=== PATIENT | male | born 1975 | race Caucasian/White ===

== ENCOUNTER 2019-06-03 06:00 | Day surgery (SDC) | payer BC ==
[2019-06-02 14:48] LABS: BASOPHILS 0.4 % (0-2); EOSINOPHILS 7.6 % (0-7); HEMATOCRIT 37.7 % (42.0-54.0); HEMOGLOBIN 13.1 g/dL (13.5-17.5); IMMATURE GRANULOCYTES 0.2 % (0-5); LYMPHOCYTES 41.7 % (15-50); MCH 31.6 pg (26.0-34.0); MCHC 34.7 g/dL (31.0-37.0); MCV 90.8 fL (80.0-100.0); NEUTROPHILS 37.1 % (40-80); PLATELET COUNT 258 10x3/uL (130-400); RBC 4.15 10x6/uL (4.20-6.10); RDW 12.8 % (11.5-14.5); WBC 5.2 10x3/uL (4.8-10.8)
[2019-06-02 14:57] LABS: CALC OSMOLALITY 264 mosm/kg (275-300); CALCIUM 8.9 mg/dL (8.5-10.1); CARBON DIOXIDE 30.6 mmol/L (21.0-32.0); CHLORIDE - SERUM 97 mmol/L (98-107); CREATININE - SERUM 0.7 mg/dL (0.6-1.3); GLUCOSE 90 mg/dL (74-106); POTASSIUM - SERUM 3.9 mmol/L (3.5-5.1); SODIUM 133 mmol/L (136-145); UREA NITROGEN 11 mg/dL (7-18); eGFR NON AFRICAN AMERICAN > 90 mL/min (90-120)
[2019-06-02 15:38] LABS: APTT 28.4 SECONDS (22.8-39.4); INR 0.94 (0.85-1.17); PROTIME 12.1 SECONDS (11.6-15.0)
[~2019-06-03] VITALS: Ht 182.9 cm; Wt 90.7 kg
--- NOTE | ~2019-06-03 | OP ---
PATIENT NAME: NICOLE MARTE MEDICAL RECORD: [id number] :79 LOCATION:[facility] ADMISSION DATE: SURGEON: TRACI PEREZ MD DATE OF OPERATION: 06/03/2019 REFERRED BY: Kjaal Espinosa APN and Dr. Ruff of [place]. PREOPERATIVE DIAGNOSES: Recurrent persistent venous stasis ulceration and inflammation medial left leg with gross superficial venous reflux and a dilated left greater saphenous vein. POSTOPERATIVE DIAGNOSES: Recurrent persistent venous stasis ulceration and inflammation medial left leg with gross superficial venous reflux and a dilated left greater saphenous vein. OPERATION PERFORMED: Venefit radiofrequency ablation of the left greater saphenous vein and high ligation of the greater saphenous vein. SURGEON: Traci Perez MD ANESTHESIA: General with LMA per MANAGER CLINICAL. PREOPERATIVE NOTE: Mr. 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 He has in addition multiple incompetent perforating veins, particularly in the medial gaiter area on the left where he has a persistent recurring area of inflammation and ulceration. He is brought to the operating room at this time to perform a radiofrequency ablation of the greater saphenous vein in order to speed healing of the lesion and hopefully we can get him to a point where he has much less frequent problems like this. DESCRIPTION OF PROCEDURE: Under general anesthesia in the supine position, the patient was prepped and draped in a sterile manner. He was examined with Duplex ultrasound and a site in the leg at about the junction of the middle and upper thirds on the medial aspect was chosen to access the greater saphenous vein percutaneously with micropuncture technique. A 7-Urdu introducer was placed and the Venefit catheter was inserted and advanced to the saphenofemoral junction. It was positioned under ultrasound approximately 2 cm distal to that junction and following that, the patient was placed in Trendelenburg position and under ultrasound guidance, normal saline was injected into the perivenous sheath to act as a heat sink and to close down on to get better apposition of the vein around the catheter. The heating element was then activated and gradually removed in 6-7 cm increments while under ultrasound imaging and also after an Esmarch bandage was used to help to empty the venous system in the left leg. The catheter was removed and a simple 4-0 Prolene suture placed at the entry site below the knee. I had noted the patient's right greater saphenous vein to be really large and wanting to avoid any problems with recurrence after the radiofrequency ablation. I opted to go ahead and ligate that vein. I made a small incision just beneath the groin crease and exposed the saphenous vein and ligated it doubly with 2-0 silk. That wound was then closed with interrupted 3-0 Vicryl and running intracuticular 4-0 Monocryl. It was sealed with Dermabond glue and dressed with Maxorb Ag, Tegaderm, and Cavilon skin prep. The patient was placed in his knee high 30-40 mm gradient open-toed stocking OPERATIVE REPORT [id number] NICOLE MARTE and additional Coban elastic compressive dressing was applied from the knee up over the thigh. The patient was at that point awakened and in stable condition returned to the recovery room. PLAN: The patient should be able to go home today and follow my usual instructions, which are that he should rest today with his leg elevated higher than his heart for most of the time; however, every hour or 2 it does good for him to get up and walk around or even go outdoors and go for a walk. He should sleep in his stocking tonight. He may take it off to shower tomorrow and then I would like him to wear his stockings whenever he is out of bed until he comes back to see me in the office. He is to resume or continue his home medications, diet and activities as tolerated. An appointment will be scheduled for him in my office to return for followup ultrasound examination, wound check, etc. The patient is being given a single dose of Lovenox in the hospital here today and I am prescribing for him, Eliquis 5 mg b.i.d., which I plan for him for about a month or 6 weeks. Along with this factor V deficiency or factor V Leiden, whichever he has. He does have a superficial phlebitis of the tributary veins of the greater saphenous in the left lower extremity and I would consider him to be at risk for further superficial phlebitis at this point. He will be advised to take ibuprofen and use an ice pack on his leg p.r.n. for pain or discomfort. NOTE: This patient is clearly a failure of conservative medical therapy and has active ulceration and an inflammation in the left leg, which is recurrent neoplasm. TRANSINT:[id number] Voice Confirmation ID: [id number] DOCUMENT ID: [id number] TRACI PEREZ MD CC: [id number] DICTATION DATE: 06/07/19 165 DUMPSTER DRIVER: [id number] [facility] 06/03/19 [place] [id number] [place] [id number]
[~2019-06-03 06:00] MED LIST: BAYER CHEWABLE81 MG PO; LISINOPRIL5 MG PO; TRILEPTAL300 MG; TRILEPTAL300 MG PO
[2019-06-03] MEDS ORDERED: CLARITIN 10 MG10 MG PO (06:46)
[2019-06-03] MEDS ORDERED: KENALOG 0.1 % O15 GM TOPICAL (06:47)
[2019-06-03] MEDS ORDERED: FLUTICASONE PRO16 GM (06:47)
[2019-06-03] MEDS ORDERED: ULTRAM50 MG PO (06:49)
[2019-06-03 07:13] VITALS: BP 151/86; Ht 182.9 cm; Wt 90.7 kg
[2019-06-03] MEDS ORDERED: ELIQUIS5 MG PO (10:22)
[2019-06-03] MEDS ORDERED: HYDROCODON-ACE1 EAC7 PO (10:23)
--- NOTE | 2019-06-03 12:44 | NUR ---
1034-REC'D FROM RR. AWAKE AND ALERT,DENIES PAIN.VSS. DRESSING TO LLE CDI. ABLE TO FEEL EXTREMITY,ABLE TO WIGGLE DIGITS. PALPABLE STRONG PEDAL PULSE. IV PATENT TO RIGHT ARM AT KVO. WATER AT BEDSIDE. CL IN EASY REACH. MOTHER IN LAW AT BEDSIDE.
--- NOTE | 2019-06-03 12:45 | NUR ---
1045-ABLE TO AMBULATE TO RESTROOM WITH SLOW STEADY GAIT AND URINATE WITHOUT COMPLICATIONS.DENIES PAIN.
--- NOTE | 2019-06-03 12:46 | NUR ---
1100-FULL LIQUID TRAY TO ROOM. DENIES PAIN.
--- NOTE | 2019-06-03 12:47 | NUR ---
1135-TOLERATED TRAY. DISCAHRGE CRITERIA MET. REMOVED IV FROM RIGHT ARM WITH CATH INTACT,DISPOSED INTO SHARPS,COVERED WITH COTTON BALL,SECURED WITH TAPE.VSS. DENIES PAIN. DRESSING TO LLE CDI,PALPABLE STRONG PEDAL PULSE,CAP REFILL WNL,SKIN WARM TO TOUCH.
--- NOTE | 2019-06-03 12:48 | NUR ---
1155-REVIEWED POST OPERATIVE INSTRUCTIONS AND FOLLOW UP.VERBALIZED UNDERSTANDING WITHOUT FURTHER QUESTIONS OR CONCERNS.
--- NOTE | 2019-06-03 12:49 | NUR ---
1200-ESCORTED OUT VIA W/C WITH MOTHER IN LAW AWAITING TO DRIVE HOME.
== END 2019-06-03 12:00 | disposition home or self-care (01) ==
LOC: D.OPS 06:00 → D.PAN 08:00 → D.OPS 08:00
PROVIDERS: ATTEND Surgery
DX: I87.2 Venous insufficiency (chronic) (peripheral) (principal); E63.8 Other specified nutritional deficiencies; D68.51 Activated protein C resistance; I80.3 Phlebitis and thrombophlebitis of lower extremities, unspecified; I87.022 Postthrombotic syndrome with inflammation of left lower extremity